=== PATIENT | male | born 1990 | race Two or more races ===

== ENCOUNTER 2023-11-26 08:39 | Emergency (ER) | payer OTHER ==
[~2023-11-26] VITALS: Ht 180.3 cm; Wt 117.5 kg
[2023-11-26] MEDS ORDERED: DEXAMETHASONE SODIUM PHOSPHATE 4 MG/ML VIAL IM STA (09:09)
[2023-11-26] MEDS ORDERED: KETOROLAC TROMETHAMINE 30 MG VIAL IM STA (09:09)
[2023-11-26] MEDS ORDERED: CEFTRIAXONE SODIUM 1,000 MG VIAL IM STA (09:10)
[2023-11-26] MEDS ORDERED: KETOROLAC TROMETHAMINE 30 MG VIAL ONE (09:12)
[2023-11-26] MEDS ORDERED: DEXAMETHASONE SODIUM PHOSPHATE 4 MG/ML VIAL ONE (09:13)
[2023-11-26] MEDS ORDERED: CEFTRIAXONE SODIUM 1,000 MG VIAL ONE (09:13)
== END 2023-11-26 09:36 | disposition home or self-care (01) ==
LOC: ER 08:40
DX: J32.9 Chronic sinusitis, unspecified (principal)